=== PATIENT | female | born 1940 | race Caucasian/White ===

== ENCOUNTER → 2016-10-16 | Outpatient (CLI) | payer OTHER, MEDICARE ==
[2016-10-16 14:03] LABS: BASOPHILS # (AUTO) 0.11 10*3/UL; BASOPHILS % (AUTO) 1.3 % (0-1); EOSINOPHILS % (AUTO) 2.1 % (0-8); HEMATOCRIT 41.6 % (37.0-47.0); HEMOGLOBIN 13.8 g/dL (12.0-16.0); IMM GRAN % (AUTO) 0.4 % (0-5); IMM GRAN# (AUTO) 0.03 10*3/UL; LYMPHOCYTES # (AUTO) 2.37 10*3/uL; LYMPHOCYTES % (AUTO) 28.1 % (10-50); MEAN CORPUSCULAR HEMOGLOBIN 31.1 PG (27-31); MEAN CORPUSCULAR HGB CONC 33.2 g/dL (33-37); MONOCYTES # (AUTO) 0.91 10*3/UL (0.3-0.8); MONOCYTES % (AUTO) 10.8 % (5-15); NEUTROPHILS # (AUTO) 4.83 10*3/UL; NEUTROPHILS % (AUTO) 57.3 % (50-80); RDW COEFFICIENT OF VARIATION 12.8 % (11.5-14.5); RED BLOOD COUNT 4.44 10^6/uL (4.20-5.40); WHITE BLOOD COUNT 8.43 10^3/uL (4.8-10.8)
[2016-10-16 14:08] LABS: PLATELET MORPHOLOGY COMMENT NORMAL MORPHOLOGY (NORM)
[2016-10-16 14:27] LABS: BILIRUBIN,TOTAL 0.7 mg/dL (0.3-1.2); BUN/CREATININE RATIO 13.75 (6-20); CALCIUM 9.9 mg/dL (8.7-10.7); CREATININE 0.8 mg/dL (0.50-1.20); POTASSIUM 3.6 meq/L (3.8-5.2); TOTAL PROTEIN 7.5 g/dL (6.1-8.0)
== END ==
LOC: MOB LAB 12:27
PROVIDERS: ATTEND Internal Medicine
DX: Z85.3 Personal history of malignant neoplasm of breast (principal)
CPT/HCPCS: 36415; 80053; 85025